=== PATIENT | female | born 1995 | race Two or more races ===

== ENCOUNTER 2019-10-11 00:01 | Outpatient (CLI) | payer SELFPAY ==
[2019-10-11 00:36] LABS: APPEARANCE,URINE CLEAR; BILIRUBIN,URINE NEGATIVE (NEGATIVE); COLOR,URINE STRAW; GLUCOSE, URINE NEGATIVE (NEGATIVE); KETONES,URINE NEGATIVE (NEGATIVE); LEUKOCYTE ESTERASE,URINE NEGATIVE (NEGATIVE); NITRITE,URINE NEGATIVE (NEGATIVE); PROTEIN,URINE NEGATIVE (NEGATIVE); URINE SPECIFIC GRAVITY 1.011; UROBILINOGEN,URINE NEGATIVE mg/dL (<2.0)
[2019-10-11 01:01] LABS: URINE AMPHETAMINES SCREEN NEGATIVE
[2019-10-11 01:05] LABS: URINE BARBITURATES SCREEN NEGATIVE; URINE BENZODIAZEPINES SCREEN NEGATIVE; URINE MARIJUANA (THC) SCREEN NEGATIVE; URINE PHENCYCLIDINE SCREEN NEGATIVE
[2019-10-11 01:33] LABS: URINE COCAINE SCREEN NEGATIVE; URINE METHADONE SCREEN NEGATIVE
[2019-10-11 02:47] LABS: BACTERIA (WET MOUNT) 4+ BACTERIA SEEN; EPITHELIALS (WET MOUNT) 4+ EPITHELIALS SEEN; RBCS (WET MOUNT) 1+ RBCS SEEN; T.VAGINALIS (WET MOUNT) NO TRICHOMONAS SEEN; WBCS (WET MOUNT) 1+ WBCS SEEN; YEAST (WET MOUNT) NO YEAST SEEN
--- NOTE | 2019-10-11 02:57 | RADIOLOGY REPORT (SQ) ---
Obstetric ultrasound: 10/11/2019 1:53 AM CDT HISTORY: 23-year-old female with evaluate cervical length. TECHNIQUE: Multiple grayscale and color Doppler images of the pelvis were obtained transvaginally and transabdominally. COMPARISON: None available for this . FINDINGS: A single intrauterine gestation is seen, which is cephalic in position. The placenta is posterior in location, and free of internal os of the cervix. The estimated heart rate is approximately 137 bpm. The cervix measures at least 4.3 cm in length. The estimated weight is approximately 1566 g +/- 15%. The fetus overall measures at the 53%. The GIAN measures 12.4 cm, with the deepest vertical pocket of approximately 2.6 cm. The fetus measures at 30 weeks and 3 day(s) by AUA, consistent with an estimated due date of 12/17/2019. This is different than the prior estimated due date of 12/21/2019. The following measurements were obtained: BPD: 7.5 cm, consistent with 29 weeks and 6 day(s). HC: 28.6 cm, consistent with 31 weeks and 3 day(s). AC: 26.3 cm, consistent with 30 weeks and 3 day(s). FL: 5.8 cm, consistent with 30 weeks and 1 day(s). IMPRESSION: A single, live intrauterine gestation is seen which is currently cephalic in position. The fetus measures at 30 weeks and 3 day(s) by AUA, consistent with an estimated due date of 12/17/2019. This is different than the prior estimated due date of 12/21/2019. 2.Detailed anatomic assessment was not performed. 3. The cervix measures at least 4.3 cm in length. Interval follow-up with an obstetric care provider is recommended.
[2019-10-11 04:14] LABS: CHLAM PCR NOT DETECTED (NOT DETECT)
== END 2019-10-11 03:32 | disposition home or self-care (01) ==
LOC: LC 00:01
PROVIDERS: ATTEND Student in an Organized Health Care Education/Training Program
DX: O47.03 False labor before 37 completed weeks of gestation, third trimester (principal); Z3A.30 30 weeks gestation of pregnancy
CPT/HCPCS: 76815; 80307; 81001; 87210; 87491; 87591

== ENCOUNTER 2019-12-11 10:05 | Inpatient (IN) | payer SELFPAY ==
[2019-12-11 10:57] LABS: APPEARANCE,URINE SLIGHTLY-CLOUDY; BILIRUBIN,URINE NEGATIVE (NEGATIVE); COLOR,URINE YELLOW; GLUCOSE, URINE NEGATIVE (NEGATIVE); KETONES,URINE NEGATIVE (NEGATIVE); LEUKOCYTE ESTERASE,URINE MODERATE (NEGATIVE); NITRITE,URINE NEGATIVE (NEGATIVE); PROTEIN,URINE 30 mg/dL (NEGATIVE); UROBILINOGEN,URINE NEGATIVE mg/dL (<2.0)
[2019-12-11 11:17] LABS: URINE AMPHETAMINES SCREEN NEGATIVE; URINE BARBITURATES SCREEN NEGATIVE; URINE BENZODIAZEPINES SCREEN NEGATIVE; URINE COCAINE SCREEN NEGATIVE; URINE MARIJUANA (THC) SCREEN NEGATIVE; URINE METHADONE SCREEN NEGATIVE; URINE PHENCYCLIDINE SCREEN NEGATIVE
--- NOTE | 2019-12-11 12:13 | Admission Physical ---
Datetime Report Generated by CPN: 12/11/2019 12:12 CURRENT ADMISSION Chief Complaint: Uterine Contractions Indication for Induction: Not Applicable Admit Impression : Term, Intrauterine Admit Plan: Admit to Unit; Initiate Section Protocol ALLERGIES Medication Allergies: No Medication Allergies: No Known Allergies (12/11/2019) Latex: Unknown OBSTETRICAL HISTORY EDC: 12/21/2019 00:00 : 2 Para: 1 Term: 1 : 0 SAB: 0 IAB: 0 Livin Gestational Diabetes: No Rh Sensitization: No Incompetent Cervix: No PAULINE: No Infertility: No ART Treatment: No Uterine Anomaly: No IUGR: No Hx Previous C/S: No Macrosomia: No Hx Loss/Stillborn: No PIH: No Hx : No Placenta Previa/Abruption: No Depression/PP Depression: No PTL/PROM: No Post Hemorrhage: Yes Current Procedures: Ultrasound Obstetrical History Comments: G1: , 08/2014, female @ 39 weeks G2: current SEE RECORDS Alcohol: No Marijuana : No Cocaine: No Other Illicit Drugs: No Cigarettes: Never Smoker. 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 Surgery: No Heart Disease: No Hosp/Surgery: Yes Autoimmune Disorder: No Anesthetic Complications: No Kidney Disease: No Abnormal Pap Smear: No Neuro/Epilepsy: No Psychiatric Disorders: No Other Medical Diseases: No Hepatitis/Liver Disease: No Significant Family History: No Varicosities/Phlebitis: No Trauma/Violence : No Thyroid Dysfunction: No Medical History Comments: Appendicitis and gallbladder removal INFECTIOUS HISTORY Gonorrhea: No Genital Herpes: No Chlamydia: No Tuberculosis: No Syphilis: No Hepatitis: No HIV/AIDS Exposure: No Rash or Viral Illness: No HPV: No Infectious History Comments: denies (Annotations: Data stored by [facility] on behalf of user) PHYSICAL EXAM General: Normal HEENT: Normal Neurologic: Normal Thyroid: Normal Heart: Normal Lungs: Normal Breast: Deferred Back: Normal Abdomen: Normal Genitourinary Exam: Normal Extremities: Normal DTRs: Normal Pelvic Type: Adequate Vital Signs: Reviewed VAGINAL EXAM Dilatation: 4 Effacement: 100 MEMBRANES Pooling: Negative Membranes: Intact FETUS A EGA: 38.4 Monitoring: External US FHR- Baseline: 120 Variability: Moderate 6-25bpm Decelerations: None FHR Category: Category II Presentation: Transverse Admit Comment: The baby fht are cat 2 with some late decells and is not vertex. The head is off to right pelvis and there is risk of cord prolapse. I would recomend a c section in this situation. PLANS FOR LABOR AND DELIVERY Labor and Delivery: None Pain Management: Epidural Feeding Preference: Both Circumcision: No INFORMED CONSENT Signature: with User ID: [email or web address]
[2019-12-11] MEDS ORDERED: CEFAZOLIN SODIUM 2 GM in DEXTROSE 5%-WATER 50 ML IV PRN (12:15)
[2019-12-11] MEDS ORDERED: CEFAZOLIN 2 GM/D5W RTU 2 GM/50 ML RTUPB IV PRN (12:46)
[2019-12-11] MEDS ORDERED: CITRIC ACID/SODIUM CITRATE ORAL SOLN 15 ML UDCUP ONE (13:17)
[2019-12-11] MEDS ORDERED: CEFAZOLIN 2 GM/D5W RTU 2 GM/50 ML RTUPB IV ONE (13:17)
[2019-12-11] MEDS ORDERED: OXYTOCIN 10 UNIT/ML VIAL ONE ×2 (13:17→13:51)
[2019-12-11] MEDS ORDERED: MISOPROSTOL 0.2 MG TABLET ONE (13:17)
[2019-12-11 13:26] LABS: ABSOLUTE EOSINOPHILS # (AUTO) 0.1 10^3/uL (0.0-0.6); ABSOLUTE LYMPHOCYTES (AUTO) 2.4 10^3/uL (0.5-4.7); ABSOLUTE MONOCYTES (AUTO) 0.9 10^3/uL (0.1-1.4); ABSOLUTE NEUT (AUTO) 4.5 10^3/uL (1.7-8.2); BASOPHILS % (AUTO) 0.6 % (0-2); HEMATOCRIT 35.2 % (36.0-47.0); HEMOGLOBIN 11.9 g/dL (12.0-15.5); LYMPHOCYTES % (AUTO) 30.8 % (13-45); MEAN CORPUSCULAR HEMOGLOBIN 25.7 pg (27.0-33.4); MEAN CORPUSCULAR HGB CONC 33.7 g/dL (32.0-36.0); MEAN CORPUSCULAR VOLUME 76 fl (80-97); MONOCYTES % (AUTO) 10.9 % (3-13); PLATELET COUNT 163 10^3/uL (150-450); RED BLOOD COUNT 4.61 10^6/uL (3.72-5.28); RED CELL DISTRIBUTION WIDTH 14.5 % (11.5-14.0); SEGMENTED NEUTROPHILS % (AUTO) 56.7 % (42-78); TOTAL CELLS COUNTED % (AUTO) 100 %; WHITE BLOOD COUNT 7.9 10^3/uL (4.0-10.5)
[2019-12-11] MEDS ORDERED: BUPIVACAINE HCL 0.25 % INJ/PF (2.5 MG/1 ML) 30 ML VIAL ONE (13:51)
[2019-12-11] MEDS ORDERED: ONDANSETRON HCL INJ/PF 4 MG/2 ML SDV ONE (13:51)
[2019-12-11] MEDS ORDERED: OXYTOCIN/0.9 % SODIUM CHLORIDE 30 UNIT/500 ML RTUINJ ONE (13:51)
[2019-12-11] MEDS ORDERED: PHENYLEPHRINE HCL INJ/PF 10 MG/1 ML SDV ONE (13:51)
[2019-12-11] MEDS ORDERED: MIDAZOLAM 2 MG/2 ML INJ ONE (13:51)
--- NOTE | 2019-12-11 15:08 | Operative Report ---
Operative Report DATE OF SURGERY: 12/11/19 PREOPERATIVE DIAGNOSIS: Patient presents for decreased movement, NST shows multiple late decelerations, cervix is 4 cm dilated but the head is not presenting into the pelvis and appears to be diverted off to the patient's right which places her at risk for cord prolapse if the water were to break. POSTOPERATIVE DIAGNOSIS: Same OPERATION: via low transverse uterine incision SURGEON: MILAGROS CHRISTIANSON ANESTHESIA: Spinal TISSUE REMOVED OR ALTERED: Placenta COMPLICATIONS: Meconium noted and Apgars of 1 6 and 8 ESTIMATED BLOOD LOSS: 400 cc INTRAOPERATIVE FINDINGS: Viable baby with Apgars of 1, 6 and 8. PROCEDURE: Patient was taken to the OR and placed in supine position after her spinal anesthesia. She is prepared and draped in sterile fashion. Schafer was placed for drainage of the bladder. Low transverse incision was made and carried down the level of the fascia. The fascial incision was made with knife and extended bilaterally with curved Garcia scissors. The fascia was off the rectus muscles using sharp and blunt dissection. The rectus muscles are in the midline. The peritoneum was entered without incident. Bladder blade was placed in uterine segment was identified. The baby's head which was in the right pelvis was directed to the lower uterine segment. A low transverse incision was made creating a bladder flap. Bladder blade was placed low transverse uterine incision was made with the knife and extended with fingertips. The baby was delivered with some fundal pressure. Mouth and nose were suctioned free. The cord is doubly clamped and cut. Baby is passed off to the scalemaker in attendance. The placenta was manually extracted with trailing membranes. The uterus was externalized wrapped in a moist lap sponge. Uterine contents wiped free. Uterus was closed with a running locking layer of 0 chromic suture using the second layer to imbricate the first completing a double layer closure of the uterus. The serosa was closed with a running 2-0 chromic stitch. The pelvis was irrigated and suctioned free of fluid the uterus was replaced in the abdomen. The abdominal wall peritoneum was closed with running 2-0 chromic stitch. Fascia was closed with a running 0 Vicryl in 2 segments. Yee's layer was brought together with 0 plain gut stitch and the skin was closed with running subcuticular 4-0 undyed Vicryl stitch. The wound was dressed mother and baby did well.
[2019-12-11] MEDS ORDERED: DIPH/PERTUSS(ACELL)/TETANUS VAC/PF 0.5 ML SYR (>=10YO) IM PRN (15:09)
[2019-12-11] MEDS ORDERED: PROMETHAZINE HCL INJ 25 MG/1 ML VIAL IV PRN (15:09)
[2019-12-11] MEDS ORDERED: RINGERS SOLUTION,LACTATED 1,000 ML IV PRN (15:09)
[2019-12-11] MEDS ORDERED: MEASLES,MUMPS&RUBELLA VACC/PF 0.5 ML VIAL SUBCUT PRN (15:09)
[2019-12-11] MEDS ORDERED: OXYTOCIN/0.9 % SODIUM CHLORIDE 30 UNIT/500 ML RTUINJ IV PRN (15:09)
[2019-12-11] MEDS ORDERED: ACETAMINOPHEN 325 MG TABLET PO PRN (15:09)
[2019-12-11] MEDS ORDERED: OXYCODONE-ACETAMINOPHEN 5-325 MG TABLET PO PRN (15:09)
[2019-12-11] MEDS ORDERED: ACETAMINOPHEN 1,000 MG/100 ML RTUPB IV PRN (15:09)
--- NOTE | 2019-12-11 16:06 | Operative Report ---
Operative Report DATE OF SURGERY: 12/11/19 OPERATION: Repeat c section PROCEDURE: Addendum to op report. A Kiwi vac was used with pressure in green with one pull to deliver the head. This was done because the treasury assistant was having problems pushing the baby out because of the patient girth.
[2019-12-11] MEDS ORDERED: MORPHINE SULFATE 10 MG/ML INJ ONE (16:54)
[2019-12-11] MEDS: HYDROMORPHONE HCL INJ/PF 2 MG/ML AMPULE IV PRN (18:04)
[2019-12-11] MEDS: DOCUSATE SODIUM 100 MG CAPSULE PO SCH (18:04)
[2019-12-11] MEDS: IBUPROFEN 800 MG TABLET PO SCH (18:26)
--- NOTE | 2019-12-11 18:34 | Delivery Summary ---
Del Sum A-C Datetime Report Generated by CPN: 12/11/2019 18:34 DELIVERY PERSONNEL DELIVERY PERSONNEL: [id number] Delivery Doctor:: Falguni Seay MD RESISTOR COATER:: Rodolfo Wheatley CRNA Labor and Delivery Nurse:: Abiodun Holley RN Strategic Alliances Manager:: Inga Barrios RN Neonatal Nurse Practitioner:: TAMMY Walden Nursery Nurse:: Almaz Duckworth RN Nursery Nurse:: Celena Wilkinson RN Caddy/OIL CHANGER: ST Monika Caddy/OIL CHANGER: Patricia Irizarry CST Additional Personnel: : Abiodun Holley RN MATERNAL INFORMATION Delivery Anesthesia: Spinal Medications After Delivery: Pitocin 30 Units in 500ml NS/D5W Delivery QBL: 620 Maternal Complications: None LABOR SUMMARY EDC: 12/22/2019 00:00 No. Babies in Womb: 1 Attempted: No Labor Anesthesia: None LABOR INFORMATION Reason for Induction: Not Applicable Oxytocin: N/A Group B Beta Strep: Negative Antibiotics # of Doses: 1 Antibiotics Time of Last Dose: 1436 Name of Antibiotic Given: Ancef 2 GM Steroids Given: None Reason Steroids Not Administered: Not Applicable MEMBRANES Membranes Rupture Method: Artificial Rupture of Membranes: 12/11/2019 14:26 Length of Rupture (hr): 0.03 Amniotic Fluid Color: Meconium Amniotic Fluid Amount: Small Amniotic Fluid Odor: Normal STAGES OF LABOR Stage 3 hr: 0 Stage 3 min: 1 VAGINAL DELIVERY Episiotomy: None Laceration #1: None Laceration Extension #1: N/A Laceration Repair: Not Applicable Sponge Count Correct: N/A Sharps Count Correct: N/A CSECTION DELIVERY Primary Indication: Nonreassuring Status Secondary Indication: Transverse/Complex Presentation CSection Urgency: Non-Scheduled CSection Incidence: Primary Labor: Labor Elective: Nonelective CSection Incision: Lower Uterine Transverse BABY A INFORMATION Infant Delivery Date/Time: 12/11/2019 14:28 Method of Delivery: Nurse Controlled Delivery: No Born in Route : No : N/A Forceps: N/A Vacuum Extraction: Successful Shoulder Dystocia : No ASSISTED DELIVERY BABY A Vacuum Number of Pulls: 1 Vacuum/Forceps Comment: see op note PRESENTATION/POSITION BABY A Presentation: Cephalic Cephalic Presentation: N/A Vertex Position: transverse Breech Presentation: N/A PLACENTA INFORMATION BABY A Placenta Delivery Time : 12/11/2019 14:29 Placenta Method of Delivery: Manual Removal Placenta Status: Delivered SCORES BABY A Heart Rate 1 min: Slow, Below 100 bpm Resp Effort 1 min: Absent Reflex Irritability 1 min: No Response Muscle Tone 1 min: Flaccid Color 1 min: Blue/Pale Resuscitation Effort 1 min: Tactile Stimulation; Oxygen; PPV/NCPAP SCORE 1 MIN: 1 Heart Rate 5 min: >100 bpm Resp Effort 5 min: Good Cry Reflex Irritability 5 min: Cough or Sneeze or Pulls Away Muscle Tone 5 min: Flaccid Color 5 min: Blue/Pale Resuscitation Effort 5 min: Oxygen; PPV/NCPAP SCORE 5 MIN: 6 Heart Rate 10 min: >100 bpm Resp Effort 10 min: Good Cry Reflex Irritability 10 min: Cough or Sneeze or Pulls Away Muscle Tone 10 min: Active Motion Color 10 min: Blue/Pale Resuscitation Effort 10 min: Oxygen; PPV/NCPAP SCORE 10 MIN: 8 INFANT INFORMATION BABY A Gestational Age at Delivery: 38.4 Gestational Status: Early Term- 37- 38.6 Weeks Outcome : Liveborn Infant Condition : Stable Infant Sex: Male IDENTIFICATION BABY A Verification Date/Time: 12/11/2019 15:00 ID Band Number: [id number] Mother's Name Verified: Yes RN Verifying : Abiodun DensonJAZMINE Additional Verifying Personnel: Inga Barrios RN WEIGHT/LENGTH BABY A Birthweight (gm): 2693 Infant Weight (lb): 5 Weight (oz): 15 Length (in): 19.50 Length (cm): 49.53 CORD INFORMATION BABY A No. Cord Vessels: 3 Nuchal Cord : N/A Cord Blood Taken: Yes-For Storage (Mom's Blood type +) Suction: Mouth; Nose ASSESSMENT BABY A Complications: Decreased Variability; Multiple Late Decels; Meconium Skin to Skin: No Company Manager/ALS Called : Yes Care By: Natalie Ducwkorth RN Transferred To: NICU BABY B INFORMATION : N/A
[2019-12-11] MEDS: OXYCODONE-ACETAMINOPHEN 5-325 MG TABLET PO PRN (20:51)
[2019-12-11] MEDS: KETOROLAC TROMETHAMINE INJ/PF 30 MG/1 ML SDV IV SCH (22:06)
[2019-12-12] MEDS: IBUPROFEN 800 MG TABLET PO SCH ×4 (00:08→18:54)
[2019-12-12] MEDS: HYDROMORPHONE HCL INJ/PF 2 MG/ML AMPULE IV PRN ×2 (04:20→14:39)
[2019-12-12] MEDS: SIMETHICONE 80 MG TAB.CHEW PO PRN ×2 (04:40→08:21)
[2019-12-12] MEDS: KETOROLAC TROMETHAMINE INJ/PF 30 MG/1 ML SDV IV SCH ×2 (05:29→14:50)
[2019-12-12] MEDS: OXYCODONE-ACETAMINOPHEN 5-325 MG TABLET PO PRN ×2 (08:21→22:05)
--- NOTE | 2019-12-12 08:34 | PDOC PROGRESS REPORT ---
Subjective-OB Progress Note for:: 12/12/19 Subjective: Resting in bed, mild incisional pain, sister with patient, hsb at [facility] with baby, pt would like to be D/C DANYEL to go to [facility], voiding, eating well Physical Exam (OB) Vital Signs: Temp Pulse Resp BP Pulse Ox 98.1 F 79 18 116/63 98 12/12/19 07:41 12/12/19 07:41 12/12/19 07:41 12/12/19 07:41 12/12/19 07:41 Intake & Output 12/11/19 12/12/19 12/13/19 06:59 06:59 06:59 Output Total 2300 Balance -2300 Weight 99.1 kg - PIH/Pre-Eclampsia DTR's: 2 + Clonus: Negative Headache: Absent Epigastric Pain: No Visual Changes: No - Dressing Removed: No Closure Type: opsite - Lochia Lochia Amount: Scant < 10 ml Lochia Color: Rubra/Red - Abdomen Description: Soft, Round Fundal Description: Firm, Midline Fundal Height: u/u - u/2 Objective-Diagnostic Laboratory: 12/11/19 13:14 12/11/19 12/11/19 12/11/19 10:17 13:14 13:14 WBC 7.9 RBC 4.61 Hgb 11.9 L Hct 35.2 L MCV 76 L MCH 25.7 L MCHC 33.7 RDW 14.5 H Plt Count 163 Seg Neutrophils % 56.7 Urine Color YELLOW Urine Appearance SLIGHTLY-CLOUDY Urine pH 7.0 Ur Specific E[place] 1.010 Urine Protein 30 H Urine Glucose (UA) NEGATIVE Urine Ketones NEGATIVE Urine Blood NEGATIVE Urine Nitrite NEGATIVE Ur Leukocyte Esterase MODERATE H Blood Type O POSITIVE Antibody Screen NEGATIVE Assessment and Plan(PN) - Assessment and Plan (1) Delivery by section Is this a current diagnosis for this admission?: Yes - Time Spent with Patient Time with patient: Less than 15 minutes Medications reviewed and adjusted accordingly: Yes - Disposition Anticipated Discharge: Home Within: within 24 hours - re-evaluate D/C after 24 hours post op
[2019-12-12 09:02] LABS: HEMATOCRIT 32.3 % (36.0-47.0); HEMOGLOBIN 10.7 g/dL (12.0-15.5); MEAN CORPUSCULAR HEMOGLOBIN 25.6 pg (27.0-33.4); MEAN CORPUSCULAR HGB CONC 33.3 g/dL (32.0-36.0); MEAN CORPUSCULAR VOLUME 77 fl (80-97); PLATELET COUNT 167 10^3/uL (150-450); RED CELL DISTRIBUTION WIDTH 15.1 % (11.5-14.0); WHITE BLOOD COUNT 11.5 10^3/uL (4.0-10.5)
[2019-12-12] MEDS: PRENATAL VITAMIN W DHA CAPSULE PO SCH (14:50)
[2019-12-12] MEDS: DOCUSATE SODIUM 100 MG CAPSULE PO SCH ×2 (14:50→18:54)
[2019-12-12] MEDS ORDERED: GLYCERIN (ADULT) SUPP.RECT PR PRN (20:21)
[2019-12-12] MEDS ORDERED: GLYCERIN (ADULT) SUPP.RECT PR ONE (21:43)
[2019-12-13] MEDS: IBUPROFEN 800 MG TABLET PO SCH ×2 (00:26→05:57)
[2019-12-13] MEDS: OXYCODONE-ACETAMINOPHEN 5-325 MG TABLET PO PRN (04:42)
[2019-12-13] MEDS: PRENATAL VITAMIN W DHA CAPSULE PO SCH (09:15)
[2019-12-13] MEDS: DOCUSATE SODIUM 100 MG CAPSULE PO SCH (09:15)
--- NOTE | 2019-12-13 09:59 | PDOC PROGRESS REPORT ---
Subjective-OB Progress Note for:: 12/13/19 Subjective: Doing well, no c/o, ready to leave and go to [facility], baby doing better, sister at [facility], passing gas, eating, walking, scant bleeding, pain under control Physical Exam (OB) Vital Signs: Temp Pulse Resp BP Pulse Ox 97.7 F 83 18 110/58 L 98 12/13/19 04:38 12/13/19 04:38 12/13/19 04:38 12/13/19 04:38 12/13/19 04:38 Intake & Output 12/12/19 12/13/19 12/14/19 06:59 06:59 06:59 Intake Total 350 400 Output Total 2300 500 Balance -2300 -150 400 Weight 99.1 kg - PIH/Pre-Eclampsia DTR's: 2 + Clonus: Negative Headache: Absent Epigastric Pain: No Visual Changes: No - Dressing Removed: Yes Incision: Dressing Closure Type: opsite - Lochia Lochia Amount: Scant < 10 ml Lochia Color: Rubra/Red - Abdomen Description: Tender, Soft Hernia Present: No Fundal Description: Firm, Midline Fundal Height: u/u - u/2 Objective-Diagnostic Laboratory: 12/12/19 08:20 Assessment and Plan(PN) - Assessment and Plan (1) Delivery by section Is this a current diagnosis for this admission?: Yes - Time Spent with Patient Time with patient: Less than 15 minutes Medications reviewed and adjusted accordingly: Yes - Disposition Anticipated Discharge: Home Within: within 24 hours - discharge today
--- NOTE | 2019-12-13 10:12 | PDOC DISCHARGE SUMMARY ---
Impression - Admit/DC Date/PCP Admission Date/Primary Care Provider: 12/11/19 12:14 MILAGROS CHRISTIANSON MD Discharge Date: 12/13/19 - Discharge Diagnosis (1) Delivery by section Is this a current diagnosis for this admission?: Yes - Additional Information Resuscitation Status: Full Code Discharge Diet: As Tolerated, Regular Discharge Activity: Activity As Tolerated, No Lifting Over 10 Pounds, No Lifting/Push/Pulling, Pelvic Rest Referrals: MILAGROS CHRISTIANSON MD [Primary Care Provider] - (rtc [address] [facility]) Prescriptions: Oxycodone HCl/Acetaminophen [Percocet 5-325 mg Tablet] 1 tab PO Q4HP PRN #20 tablet PRN Reason: Ibuprofen [Motrin 800 mg Tablet] 800 mg PO Q6 #30 tablet Home Medications: Vits96/Iron Fum/Folic [ Tablet] 1 each PO DAILY 10/11/19 Ibuprofen [Motrin 800 mg Tablet] 800 mg PO Q6 #30 tablet 12/13/19 Oxycodone HCl/Acetaminophen [Percocet 5-325 mg Tablet] 1 tab PO Q4HP PRN #20 tablet 12/13/19 HPI Gestational Age: 38.4 Reason(s) for Admission: Ceasarean Section-Primary - decrease movement, non reassuring NST Admission Note: decrease movement, non-reassuring NST Procedures: NST, Ultrasound Intrapartum Procedure(s): : Low Cervical, Transverse Hospital Course Hospital Course: routine post op Results Laboratory Results: WBC 11.5 10^3/uL (4.0-10.5) H 12/12/19 08:20 RBC 4.20 10^6/uL (3.72-5.28) 12/12/19 08:20 Hgb 10.7 g/dL (12.0-15.5) L 12/12/19 08:20 Hct 32.3 % (36.0-47.0) L 12/12/19 08:20 MCV 77 fl (80-97) L 12/12/19 08:20 MCH 25.6 pg (27.0-33.4) L 12/12/19 08:20 MCHC 33.3 g/dL (32.0-36.0) 12/12/19 08:20 RDW 15.1 % (11.5-14.0) H 12/12/19 08:20 Plt Count 167 10^3/uL (150-450) 12/12/19 08:20 Lymph % (Auto) 30.8 % (13-45) 12/11/19 13:14 Collier % (Auto) 10.9 % (3-13) 12/11/19 13:14 Eos % (Auto) 1.0 % (0-6) 12/11/19 13:14 Baso % (Auto) 0.6 % (0-2) 12/11/19 13:14 Absolute Neuts (auto) 4.5 10^3/uL (1.7-8.2) 12/11/19 13:14 Absolute Lymphs (auto) 2.4 10^3/uL (0.5-4.7) 12/11/19 13:14 Absolute Monos (auto) 0.9 10^3/uL (0.1-1.4) 12/11/19 13:14 Absolute Eos (auto) 0.1 10^3/uL (0.0-0.6) 12/11/19 13:14 Absolute Basos (auto) 0.0 10^3/uL (0.0-0.2) 12/11/19 13:14 Seg Neutrophils % 56.7 % (42-78) 12/11/19 13:14 Urine Color YELLOW 12/11/19 10:17 Urine Appearance SLIGHTLY-CLOUDY 12/11/19 10:17 Urine pH 7.0 (5.0-9.0) 12/11/19 10:17 Ur Specific [place] 1.010 12/11/19 10:17 Urine Protein 30 mg/dL (NEGATIVE) H 12/11/19 10:17 Urine Glucose (UA) NEGATIVE mg/dL (NEGATIVE) 12/11/19 10:17 Urine Ketones NEGATIVE mg/dL (NEGATIVE) 12/11/19 10:17 Urine Blood NEGATIVE (NEGATIVE) 12/11/19 10:17 Urine Nitrite NEGATIVE (NEGATIVE) 12/11/19 10:17 Urine Bilirubin NEGATIVE (NEGATIVE) 12/11/19 10:17 Urine Urobilinogen NEGATIVE mg/dL (<2.0) 12/11/19 10:17 Ur Leukocyte Esterase MODERATE (NEGATIVE) H 12/11/19 10:17 Urine Ascorbic Acid NEGATIVE (NEGATIVE) 12/11/19 10:17 Urine Opiates Screen NEGATIVE 12/11/19 10:17 Urine Methadone Screen NEGATIVE 12/11/19 10:17 Ur Barbiturates Screen NEGATIVE 12/11/19 10:17 Ur Phencyclidine Scrn NEGATIVE 12/11/19 10:17 Ur Amphetamines Screen NEGATIVE 12/11/19 10:17 U Benzodiazepines Scrn NEGATIVE 12/11/19 10:17 Urine Cocaine Screen NEGATIVE 12/11/19 10:17 U Marijuana (THC) Screen NEGATIVE 12/11/19 10:17 SARS-CoV-2 (PCR) NEGATIVE (NEGATIVE) 12/11/19 16:13 Blood Type O POSITIVE 12/11/19 13:14 Antibody Screen NEGATIVE 12/11/19 13:14 Plan Health Concerns: pain, baby in NICU [facility] Plan of Treatment: discharge home, going to [facility] today, rev S&S to report Goals: no complications Time Spent: Less than 30 Minutes
[2019-12-13 11:18] VITALS: BP 87/50
== END 2019-12-13 11:41 | disposition home or self-care (01) | DRG 788 ==
LOC: LC 10:05 → LR 12:14 → 2S 17:45
PROVIDERS: ADMIT Obstetrics & Gynecology; ATTEND Obstetrics & Gynecology
PROC: 10D00Z1 Extraction of Products of Conception, Low, Open Approach (ICD-10-PCS; principal; 2019-12-11)
DX: O76 Abnormality in fetal heart rate and rhythm complicating labor and delivery (principal); O32.2XX0 Maternal care for transverse and oblique lie, not applicable or unspecified; O77.0 Labor and delivery complicated by meconium in amniotic fluid; Z3A.38 38 weeks gestation of pregnancy; Z37.0 Single live birth; Z03.818 Encounter for observation for suspected exposure to other biological agents ruled out
CPT/HCPCS: 1961; 36415; 59025; 64450; 76942; 80307; 81005; 85025; 85027; 86592; 86850; 86900; 86901; 87635; 88307; 94760; 94799; C9803; J0690; J1170; J1885; J2250; J2270; J2370; J2405; J2590; J3490